=== PATIENT | male | born 1990 | race Caucasian/White ===

== ENCOUNTER 2019-05-10 21:15 | Emergency (ER) | payer BC ==
[2019-05-10] MEDS ORDERED: Sodium Chloride 0.9% 1,000 ML IV SCH (21:30)
[2019-05-10] MEDS ORDERED: Alum Hydrox/Mag Hydrox/Simeth 30 ML, Lidocaine 2% 15 ML PO ONE ×2 (21:31)
[2019-05-10] MEDS ORDERED: Hyoscyamine 0.125 MG Tab.SL SL ONE (21:32)
--- NOTE | 2019-05-10 21:35 | EDM.PDOC ---
ED HPI GENERAL MEDICAL PROBLEM - General Chief Complaint: Respiratory Problem Stated Complaint: CHEST PAIN SOB Time Seen by Provider: 05/10/19 21:20 Source of Information: Reports: Patient History Limitations: Reports: No Limitations - History of Present Illness INITIAL COMMENTS - FREE TEXT/NARRATIVE: 28-year-old male presents to the ED with central chest pressure discomfort that radiates up into his throat and neck. Nothing into the left arm or shoulder. Seems to radiate mildly through to his mid back between the shoulder blades. Cough or sputum production. Pressure discomfort came on while seated about 45 minutes ago. He has no history of asthma. Smokes cigarettes occasionally. Denies cough or sputum production. Denies fever or chills. Strip past panic attacks many years ago. No history of coronary artery disease. Patient has a history of heartburn. He does not take any stimulant drinks. Has switched from coffee to tea because of heartburn. Denies any feeling of need to burp or belch at this time. Onset: Today Onset Date: 05/10/19 Onset Time: 20:30 Duration: Minutes: Location: Reports: Chest (Central chest pressure discomfort that radiates up towards his neck and throat.) Quality: Reports: Ache, Pressure, Other Severity: Moderate (Heaviness central chest) Improves with: Reports: None Worsens with: Reports: None Context: Reports: Other (Nick's occurrence). Denies: Activity, Exercise, Lifting, Sick Contact, Trauma Associated Symptoms: Reports: No Other Symptoms, Chest Pain, Shortness of Breath. 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) Chest Pain Score (Numeric/FACES): 6 - Related Data Allergies Allergy/AdvReac Type Severity Reaction Status Date / Time erythromycin base Allergy Cannot Verified 05/10/19 21:24 [From [facility] Remember Penicillins Allergy Cannot Verified 05/10/19 21:24 Remember MMR vaccine Allergy Rash Uncoded 05/10/19 21:24 Home Meds: Home Meds LORazepam 1 mg PO Q6H PRN #6 tablet 05/10/19 [Rx] Past Medical History - Past Health History Medical/Surgical History: Denies Medical/Surgical History Respiratory History: Reports: Sleep Apnea (Does use CPAP every night which has helped immensely with his daytime fatigue and his well-being.) Psychiatric History: Reports: Anxiety (With panic attacks), Panic Attack ( years ago) Social & Family History - Tobacco Use Smoking Status *Q: Current Every Day Smoker Years of Tobacco use: 15 Packs/Tins Daily: 0.1 - Living Situation & Occupation Living situation: Reports: (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 Denies: Pleuritic Chest Pain (Occasionally), Cough, Sputum Cardiovascular: Reports: Chest Pain (Central chest heaviness is the reason that he came to the ED tonight.). Denies: Blood Pressure Problem, Claudication, Dyspnea on Exertion, Edema, Lightheadedness, Orthopnea, Palpitations, PND Endocrine: Reports: No Symptoms GI/Abdominal: Reports: Other (Does get a lot of heartburn.) : Reports: No Symptoms Musculoskeletal: Reports: No Symptoms Skin: Reports: No Symptoms Neurological: Reports: No Symptoms Psychiatric: Reports: No Symptoms Hematologic/Lymphatic: Reports: No Symptoms Immunologic: Reports: No Symptoms ED EXAM, GENERAL - Physical Exam Exam: See Below Exam Limited By: No Limitations General Appearance: Alert, WD/WN, Anxious, Mild Distress, Other (Mildly anxious. Temperature is 36.8 with pulse of 102 at the bedside respiratory is 20 with sats are 97% on room air. BP is 140/86) Eye Exam: Bilateral Eye: Normal Inspection Throat/Mouth: Normal Inspection, Normal Lips, Normal Teeth, Normal Oropharynx Head: Atraumatic, Normocephalic Neck: Normal Inspection, Supple, Non-Tender, Full Range of Motion. No: Carotid Bruit, Lymphadenopathy (L), Lymphadenopathy (R) Respiratory/Chest: Normal Breath Sounds, No Accessory Muscle Use, Respiratory Distress, Decreased Breath Sounds (Occasional expiratory wheeze from lower lung bases. Mildly decreased breath sounds to both lower lung bases.), Wheezing Cardiovascular: Normal Peripheral Pulses, Regular Rate, Rhythm, No Edema, No Gallop, No JVD, No Murmur, No Rub Peripheral Pulses: 3+: Carotid (L), Carotid (R), Posterior Tibial (L), Posterior Tibial (R), Dorsalis Pedis (L), Dorsalis Pedis (R) GI/Abdominal: Normal Bowel Sounds, Soft, Non-Tender, No Organomegaly, No Abnormal Bruit, No Mass, Pelvis Stable Back Exam: Normal Inspection, Full Range of Motion. No: CVA Tenderness (L), Paraspinal Tenderness Extremities: Normal Inspection, Normal Range of Motion, Non-Tender, No Pedal Edema, Normal Capillary Refill, Other (No clinical evidence of DVT.) Neurological: Alert, Oriented, CN II-XII Intact, Normal Cognition Psychiatric: Normal Mood, Anxious (Perhaps very mild anxiety.) Skin Exam: Warm, Dry, Intact, Normal Color, No Rash EKG INTERPRETATION EKG Date: 05/10/19 Time: 21:43 Rhythm: Other (Occasional PACs.) Rate (Beats/Min): 95 [place]: Normal P-Wave: Present (Borderline first-degree AV block.) QRS: Other (There is a Q-wave in lead 3 and aVF significance is unclear.) ST-T: Other QT: Normal EKG Interpretation Comments: Borderline ECG with no signs of acute ischemia. Course - Vital Signs Last Recorded V/S: Last Vital Signs Temp 36.8 C 05/10/19 21:19 Pulse 102 H 05/10/19 21:19 Resp 20 05/10/19 21:19 BP 140/86 05/10/19 21:19 Pulse Ox 97 05/10/19 22:04 - Orders/Labs/Meds Orders: Active Orders 24 hr Category Date Time Status EKG Documentation Completion [RC] STAT Care 05/10/19 21:32 Active RT Aerosol Therapy [RC] ASDIRECTED Care 05/10/19 21:56 Active RT Post Treatment Assessment [RC] Click to Edit Care 05/10/19 22:33 Active RT Post Treatment Assessment [RC] Click to Edit Care 05/10/19 22:38 Active RT Pre-Treatment Assessment [RC] Click to Edit Care 05/10/19 22:33 Active RT Pre-Treatment Assessment [RC] Click to Edit Care 05/10/19 22:38 Active Chest 1V Frontal [CR] Stat Exams 05/10/19 21:32 Ordered Sodium Chloride 0.9% [Normal Saline] 1,000 ml Med 05/10/19 21:30 Active IV ASDIRECTED Medication Orders Sodium Chloride (Normal Saline) 1,000 mls @ 100 mls/hr IV ASDIRECTED RICHARD Last Admin: 05/10/19 21:36 Dose: 100 mls/hr Labs: Laboratory Tests 05/10/19 05/10/19 05/10/19 Range/Units 21:36 21:36 21:36 WBC 8.92 (4.23-9.07) K/mm3 RBC 5.48 (4.63-6.08) M/mm3 Hgb 15.5 (13.7-17.5) gm/dl Hct 44.9 (40.1-51.0) % MCV 81.9 (79.0-92.2) fl MCH 28.3 (25.7-32.2) pg MCHC 34.5 (32.2-35.5) g/dl RDW Std Deviation 40.1 (35.1-43.9) fL Plt Count 297 (163-337) K/mm3 MPV 9.0 L (9.4-12.3) fl Neut % (Auto) 49.0 (34.0-67.9) % Lymph % (Auto) 41.1 (21.8-53.1) % Person % (Auto) 6.5 (5.3-12.2) % Eos % (Auto) 2.7 (0.8-7.0) Baso % (Auto) 0.4 (0.1-1.2) % Neut # (Auto) 4.36 (1.78-5.38) K/mm3 Lymph # (Auto) 3.67 H (1.32-3.57) K/mm3 Person # (Auto) 0.58 (0.30-0.82) K/mm3 Eos # (Auto) 0.24 (0.04-0.54) K/mm3 Baso # (Auto) 0.04 (0.01-0.08) K/mm3 PT 10.3 (9.7-12.0) SECONDS INR 0.94 APTT 27 (22-31) SECONDS D-Dimer, Quantitative (0.19-0.50) mg/L Sodium 140 (136-145) mEq/L Potassium 4.1 (3.5-5.1) mEq/L Chloride 104 (98-107) mEq/L Carbon Dioxide 30 (21-32) mEq/L Anion Gap 10.1 (5-15) BUN 18 (7-18) mg/dL Creatinine 1.1 (0.7-1.3) mg/dL Est Cr Clr Drug Dosing 108.76 mL/min Estimated GFR (MDRD) > 60 (>60) mL/min BUN/Creatinine Ratio 16.4 (14-18) Glucose 140 H (74-106) mg/dL Calcium 8.9 (8.5-10.1) mg/dL Magnesium 1.9 (1.8-2.4) mg/dl Total Bilirubin 0.5 (0.2-1.0) mg/dL AST TNP ALT TNP Alkaline Phosphatase 86 (46-116) U/L Troponin I < 0.017 (0.00-0.056) ng/mL NT-Pro-B Natriuret Pep (0-125) pg/mL Total Protein 7.8 (6.4-8.2) g/dl Albumin 3.9 (3.4-5.0) g/dl Globulin 3.9 gm/dL Albumin/Globulin Ratio 1.0 (1-2) 05/10/19 05/10/19 Range/Units 21:36 21:36 WBC (4.23-9.07) K/mm3 RBC (4.63-6.08) M/mm3 Hgb (13.7-17.5) gm/dl Hct (40.1-51.0) % MCV (79.0-92.2) fl MCH (25.7-32.2) pg MCHC (32.2-35.5) g/dl RDW Std Deviation (35.1-43.9) fL Plt Count (163-337) K/mm3 MPV (9.4-12.3) fl Neut % (Auto) (34.0-67.9) % Lymph % (Auto) (21.8-53.1) % Person % (Auto) (5.3-12.2) % Eos % (Auto) (0.8-7.0) Baso % (Auto) (0.1-1.2) % Neut # (Auto) (1.78-5.38) K/mm3 Lymph # (Auto) (1.32-3.57) K/mm3 Person # (Auto) (0.30-0.82) K/mm3 Eos # (Auto) (0.04-0.54) K/mm3 Baso # (Auto) (0.01-0.08) K/mm3 PT (9.7-12.0) SECONDS INR APTT (22-31) SECONDS D-Dimer, Quantitative 0.27 (0.19-0.50) mg/L Sodium (136-145) mEq/L Potassium (3.5-5.1) mEq/L Chloride (98-107) mEq/L Carbon Dioxide (21-32) mEq/L Anion Gap (5-15) BUN (7-18) mg/dL Creatinine (0.7-1.3) mg/dL Est Cr Clr Drug Dosing mL/min Estimated GFR (MDRD) (>60) mL/min BUN/Creatinine Ratio (14-18) Glucose (74-106) mg/dL Calcium (8.5-10.1) mg/dL Magnesium (1.8-2.4) mg/dl Total Bilirubin (0.2-1.0) mg/dL AST ALT Alkaline Phosphatase (46-116) U/L Troponin I (0.00-0.056) ng/mL NT-Pro-B Natriuret Pep < 5 (0-125) pg/mL Total Protein (6.4-8.2) g/dl Albumin (3.4-5.0) g/dl Globulin gm/dL Albumin/Globulin Ratio (1-2) Meds: Medications Generic Name Dose Route Start Last Admin Trade Name Freq PRN Reason Stop Dose Admin Sodium Chloride 1,000 mls @ 100 mls/hr 05/10/19 21:30 05/10/19 21:36 Normal Saline IV 100 mls/hr ASDIRECTED RICHARD Administration Discontinued Medications Generic Name Dose Route Start Last Admin Trade Name Freq PRN Reason Stop Dose Admin Albuterol 8.5 gm 05/10/19 22:32 Proventil Hfa INH 05/10/19 22:33 ONETIME ONE Albuterol 6.7 gm 05/10/19 22:38 05/10/19 22:39 Proventil Hfa INH 05/10/19 22:39 1 puff ONETIME ONE Administration Albuterol/Ipratropium 3 ml 05/10/19 21:56 05/10/19 22:02 Duoneb 3.0-0.5 Mg/3 Ml NEB 05/10/19 21:57 3 ml ONETIME ONE Administration Aspirin 324 mg 05/10/19 21:36 05/10/19 21:39 Aspirin PO 05/10/19 21:37 324 mg ONETIME ONE Administration Al Hydroxide/Mg Hydroxide 30 0 ml 05/10/19 21:31 05/10/19 21:36 ml/ Lidocaine HCl 15 ml PO 05/10/19 21:32 45 ml ONETIME ONE Administration Hyoscyamine 0.125 mg 05/10/19 21:32 05/10/19 21:40 Hyomax-Sl SL 05/10/19 21:33 0.125 mg ONETIME ONE Administration Lorazepam 1 mg 05/10/19 22:31 05/10/19 22:39 Ativan PO 05/10/19 22:32 1 mg ONETIME ONE Administration - Radiology Interpretation Free Text/Narrative:: 28-year-old male presents to the ED with about 45 minutes to an hour's worth a central chest pressure heaviness rating up into his neck and throat. Has a history of heartburn. He doesn't feel like this is heartburn. Pain radiate slightly through to his mid back between the shoulder blades. He has a history of smoking occasional cigarettes. Recent upper respiratory tract infection. Highly unlikely to be cardiac related. No pain elicited on examination lungs clear heart was sinus. Plan GI cocktail. He'll be given 324 mg of aspirin chewed. IV will be normal saline 100 mils per hour. - Re-Assessments/Exams Free Text/Narrative Re-Assessment/Exam: 05/10/19 22:00 chest x-ray reveals poor inspiratory view. This magnifies the heart slightly and portable technique. The right pulmonary artery also appears enlarged again likely due to portable technique. ECG is borderline showing sinus rhythm at 95/m with a borderline first-degree AV block. Occasional PACs. There are Q waves in 3 and aVF of unclear significance with no associated ST segment changes to suggest ischemia. On questioning the patient states he feels better but still finding it somewhat difficult to get a full deep breath. Going to have RT come and give him a DuoNeb treatment and see if this makes any difference. If this fails to relieve his discomfort Ativan 1 mg will be given IV. 05/10/19 22:21 Labs reveal a normal white count at 8.92. Auto differential shows 49% neutrophils. Hemoglobin is 15.5 with hematocrit of 44.9. Platelet count 297,000. PT is 10.3 with an INR of 0.94. PTT is 27. D-dimer is 0.27 normal. Sodium 140 with potassium of 4.1. Chloride is 104 the bicarbonate 30. Anion gap is 10.1. BUNs 18. Creatinine is 1.1. GFR remains greater than 60. Glucose is 140. Calcium is 8.9 magnesium 1.9. Liver function normal. Troponin I is less than 0.017. BNP is less than 5. Total protein is 7.8 with an albumin fraction of 3.9. 05/10/19 22:25: Patient did get relief of his chest heaviness with the DuoNeb neb treatment. This suggests possible bronchospasm as a etiology for his central chest heaviness. The patient does have some mild in situ this may be being anxiety related. 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 Patient states he has a past history of occasional panic attacks. He didn't strike me as being super anxious on examination today. Tablet to use if albuterol neb treatment does not help relieve further chest discomfort. I will also write a prescription for 6 more tablets of lorazepam 1 mg strength to be used if he continues to have anxiety issues. He has no reason to have bronchospasm at this time other than being a cigarette smoker. I'll put personal care physician of further problems occur or similar problems continue. Departure - Departure Time of Disposition: 22:33 Disposition: Home, Self-Care 01 Condition: Fair Clinical Impression: Non-cardiac chest pain, Bronchospasm, acute - Discharge Information *PRESCRIPTION DRUG MONITORING PROGRAM REVIEWED*: Not Applicable *COPY OF PRESCRIPTION DRUG MONITORING REPORT IN PATIENT IBETH: Not Applicable Prescriptions: LORazepam 1 mg PO Q6H PRN #6 tablet PRN Reason: Anxiety relief Instructions: Bronchospasm, Adult Referrals: PCP,None [Primary Care Provider] - Forms: ED Department Discharge Additional Instructions: Evaluation in the emergency room tonight in regards to development of central chest pressure discomfort rating up into her neck and throat area spontaneous origin. No other signs of illness are present such as cough cold fever chills or excessive heartburn. Cardiac workup proved to be completely normal. This means a normal ECG. A normal chest x-ray and normal lab tests. They were also was negative for any blood clots in the lungs. GI cocktail did not seem to provide much relief . Nebulizer treatment with DuoNeb seem to provide you with some relief of central chest pressure discomfort suggesting that the discomfort may well of been due to bronchospasm of the upper airway. There is still a possibility that chest pressure discomfort was anxiety related. He has inflammation of the food pipe from heartburn during the night which can cause spasm as well and pressure in the neck and throat. Nothing serious is wrong at this time. Suggest using albuterol metered-dose inhaler 2 puffs every 3 hours if needed for recurrence of similar symptoms. If it does not provide relief and suggest taking lorazepam 1 mg tablet by mouth which should provide relief of anxiety within 30-45 minutes. She'll follow lorazepam indication need to fill it if problems persist. Follow-up with personal physician if any other problems occur. - My Orders Last 24 Hours: My Active Orders 05/10/19 21:30 Sodium Chloride 0.9% [Normal Saline] 1,000 ml IV ASDIRECTED 05/10/19 21:32 EKG Documentation Completion [RC] STAT Chest 1V Frontal [CR] Stat 05/10/19 21:56 RT Aerosol Therapy [RC] ASDIRECTED 05/10/19 22:33 RT Post Treatment Assessment [RC] Click to Edit RT Pre-Treatment Assessment [RC] Click to Edit 05/10/19 22:38 RT Post Treatment Assessment [RC] Click to Edit RT Pre-Treatment Assessment [RC] Click to Edit - Assessment/Plan Last 24 Hours: My Active Orders 05/10/19 21:30 Sodium Chloride 0.9% [Normal Saline] 1,000 ml IV ASDIRECTED 05/10/19 21:32 EKG Documentation Completion [RC] STAT Chest 1V Frontal [CR] Stat 05/10/19 21:56 RT Aerosol Therapy [RC] ASDIRECTED 05/10/19 22:33 RT Post Treatment Assessment [RC] Click to Edit RT Pre-Treatment Assessment [RC] Click to Edit 05/10/19 22:38 RT Post Treatment Assessment [RC] Click to Edit RT Pre-Treatment Assessment [RC] Click to Edit
[2019-05-10] MEDS ORDERED: Aspirin 81 MG Tab.Chew PO ONE (21:36)
[2019-05-10] MEDS ORDERED: Albuterol/Ipratropium 3.0-0.5 MG/3 ML Neb Soln NEB ONE (21:56)
[2019-05-10] MEDS ORDERED: LORazepam 1 MG Tab PO ONE (22:31)
[2019-05-10] MEDS ORDERED: Albuterol 6.7 GM Inhaler INH ONE ×2 (22:32→22:38)
--- NOTE | 2019-05-11 12:52 | CR ---
Chest: Portable view of the chest was obtained. Comparison: No prior chest x-ray is available. Heart size and mediastinum are normal. Lungs are clear. Bony structures are grossly intact. Impression: 1. Nothing acute is appreciated on portable chest x-ray. Diagnostic code #1
== END 2019-05-10 22:51 | disposition home or self-care (01) ==
LOC: JD.ED 21:15
DX: J98.01 Acute bronchospasm (principal); R07.89 Other chest pain; G47.30 Sleep apnea, unspecified; F41.9 Anxiety disorder, unspecified; F17.210 Nicotine dependence, cigarettes, uncomplicated; Z88.1 Allergy status to other antibiotic agents; Z88.0 Allergy status to penicillin; Z88.7 Allergy status to serum and vaccine
CPT/HCPCS: 36415; 71045; 80053; 83735; 83880; 84484; 85025; 85379; 85610; 85730; 93005; 94640; 96360; 99285; A9270; J7040; J7620-GY